=== PATIENT | male | born 2000 ===

== ENCOUNTER 2023-05-08 21:53 | Emergency (ER) | payer SELFPAY ==
[~2023-05-08] VITALS: Ht 175.3 cm; Wt 70.4 kg
[2023-05-09] MEDS: KETOROLAC TROMETH 60MG/2ML VIAL IM ONE (01:49)
[2023-05-09 02:23] LABS: Urine Bacteria FEW /hpf (None Seen); Urine Blood TRACE /uL (Negative); Urine Clarity HAZY (Clear); Urine Mucus FEW (None Seen); Urine Protein, UAD 1+ (Negative); Urine Specific Gravity 1.007 (1.001-1.035); Urine Urobilinogen Normal (Negative); Urine WBC 4 /hpf (0 - 3); Urine pH 5.5 (5.0-8.0)
[2023-05-09 02:24] LABS: Urine Color Straw (Yellow)
[2023-05-09 05:38] VITALS: BP 131/62; PULSE 67; RESP 16; TEMP 98; O2SAT 98
== END 2023-05-09 05:52 | disposition home or self-care (01) ==
LOC: ER 21:53
DX: M54.59 Other low back pain (principal); R11.2 Nausea with vomiting, unspecified
CPT/HCPCS: 74176; 81001; 96372; 99285; J1885